=== PATIENT | female | born 1975 | race Hispanic/Latino ===

== ENCOUNTER 2022-02-14 22:10 | Emergency (ER) | payer MEDICARE, BC ==
[~2022-02-14] VITALS: Ht 165.1 cm; Wt 199.6 kg
== END 2022-02-14 23:52 | disposition home or self-care (01) ==
LOC: FSED 22:17
DX: R09.89 Other specified symptoms and signs involving the circulatory and respiratory systems (principal); R03.0 Elevated blood-pressure reading, without diagnosis of hypertension; E11.9 Type 2 diabetes mellitus without complications; E66.01 Morbid (severe) obesity due to excess calories; Z68.45 Body mass index [BMI] 70 or greater, adult
CPT/HCPCS: 99282